=== PATIENT | female | born 1990 | race Caucasian/White ===

== ENCOUNTER 2021-10-31 10:00 | Inpatient (IN) | payer OTHER ==
[~2021-10-31] VITALS: Ht 167.6 cm; Wt 104.3 kg
[2021-10-31 10:39] LABS: BILIRUBIN NEGATIVE (NEGATIVE); BLOOD 1+ Ery/uL (NEGATIVE); CLARITY CLEAR (CLEAR); COLOR YELLOW (YELLOW); GLUCOSE (U) NORMAL (NORMAL); LEUKOCYTES NEGATIVE Leu/uL (NEGATIVE); NITRITE NEGATIVE (NEGATIVE); PROTEIN 2+ mg/dL (NEGATIVE); SPECIFIC GRAVITY >=1.030 (1.001-1.030)
[2021-10-31 10:42] LABS: BACTERIA 1+; URINARY WBC RARE
[2021-10-31] MEDS ORDERED: SYNTHROID50 MCG PO (10:50)
[2021-10-31] MEDS ORDERED: PRENATAL VITAM1 EA10 PO (10:51)
[2021-10-31] MEDS ORDERED: VITAMIN D3125 MC1 PO (10:52)
[2021-10-31 11:24] LABS: HCT 35.4 % (37.0-47.0); HGB 12.2 g/dl (12.5-16.0); MCH 29.3 pg (25.0-31.0); MCHC 34.5 g/dL (32.0-36.0); MCV 84.9 fL (78.0-100.0); MPV 10.2 fL (6.0-9.5); RBC 4.17 M/uL (4.20-5.40); RDW 13.7 % (11.5-14.0); WBC 14.5 K/uL (4.0-10.5)
[2021-10-31 11:35] LABS: ALBUMIN 1.9 g/dL (3.4-5.0); BILIRUBIN - TOTAL 0.1 mg/dL (0.2-1.0); BUN/CREAT RATIO (CALC) 16.7 RATIO; CREATININE 0.42 mg/dL (0.51-0.95); GLOBULIN (CALCULATION) 4.3 g/dL; POTASSIUM 3.6 mmol/L (3.5-5.1); TOTAL PROTEIN 6.2 g/dL (6.4-8.2)
[2021-11-02 07:32] LABS: HCT 32.5 % (37.0-47.0); MCH 29.2 pg (25.0-31.0); MCHC 33.8 g/dL (32.0-36.0); MCV 86.2 fL (78.0-100.0); RBC 3.77 M/uL (4.20-5.40); RDW 13.5 % (11.5-14.0); WBC 15.7 K/uL (4.0-10.5)
[2021-11-03] MEDS ORDERED: COLACE100 MG PO (06:36)
[2021-11-03] MEDS ORDERED: MOTRIN600 MG PO (06:36)
[2021-11-03] MEDS ORDERED: ZOLOFT100 MG PO (06:36)
[2021-11-03] MEDS ORDERED: PRENATAL FORMU1 EACH PO (06:36)
== END 2021-11-03 12:07 | disposition home or self-care (01) | DRG 807 ==
LOC: FOB 10:00
PROVIDERS: ADMIT Specialist
PROC: 10E0XZZ Delivery of Products of Conception, External Approach (ICD-10-PCS; principal; 2021-10-31)
PROC: 10H07YZ Insertion of Other Device into Products of Conception, Via Natural or Artificial Opening (ICD-10-PCS; 2021-10-31)
DX: O76 Abnormality in fetal heart rate and rhythm complicating labor and delivery (principal); Z37.0 Single live birth; Z3A.39 39 weeks gestation of pregnancy; O99.284 Endocrine, nutritional and metabolic diseases complicating childbirth; Z20.822 Contact with and (suspected) exposure to COVID-19; E03.9 Hypothyroidism, unspecified
CPT/HCPCS: 36415; 80053; 81001; 86850; 86900; 86901; 90686; J7030; J7120; U0002

== ENCOUNTER 2021-11-06 15:01 | Emergency (ER) | payer OTHER ==
[~2021-11-06 15:01] MED LIST: COLACE100 MG PO; MOTRIN600 MG PO; PRENATAL FORMU1 EACH PO; PRENATAL VITAM1 EA10 PO; SYNTHROID50 MCG PO; VITAMIN D3125 MC1 PO; ZOLOFT100 MG PO
[2021-11-06 16:46] LABS: BASOPHIL 0.4 % (0-2); EOSINOPHIL 3.4 % (0-5); HCT 36.7 % (37.0-47.0); HGB 12.3 g/dl (12.5-16.0); LYMPHOCYTE 32.4 % (15-48); MCH 29.3 pg (25.0-31.0); MCHC 33.5 g/dL (32.0-36.0); MCV 87.4 fL (78.0-100.0); MONOCYTE 5.8 % (0-12); MPV 9.7 fL (6.0-9.5); NEUTROPHIL 57.5 % (41-80); NRBC 0; PLT 446 K/uL (150-400); RDW 13.5 % (11.5-14.0); WBC 14.5 K/uL (4.0-10.5)
[2021-11-06 16:57] LABS: ALBUMIN 2.2 g/dL (3.4-5.0); BILIRUBIN - TOTAL 0.1 mg/dL (0.2-1.0); BUN/CREAT RATIO (CALC) 8.5 RATIO; CREATININE 0.59 mg/dL (0.51-0.95); GLOBULIN (CALCULATION) 4.4 g/dL; POTASSIUM 3.6 mmol/L (3.5-5.1); TOTAL PROTEIN 6.6 g/dL (6.4-8.2)
[2021-11-06 17:16] LABS: BILIRUBIN NEGATIVE (NEGATIVE); BLOOD 2+ Ery/uL (NEGATIVE); CLARITY CLEAR (CLEAR); COLOR YELLOW (YELLOW); GLUCOSE (U) NORMAL (NORMAL); LEUKOCYTES NEGATIVE Leu/uL (NEGATIVE); NITRITE NEGATIVE (NEGATIVE); PROTEIN NEGATIVE (NEGATIVE); SPECIFIC GRAVITY 1.015 (1.001-1.030); UROBILINOGEN 0.2 mg/dL (0.2-1.0)
[2021-11-06 17:22] LABS: URINARY WBC RARE
[2021-11-06 17:23] LABS: BACTERIA TRACE
== END 2021-11-06 17:41 | disposition home or self-care (01) ==
LOC: FER 15:01
PROVIDERS: Nurse Practitioner Family
DX: O16.5 Unspecified maternal hypertension, complicating the puerperium (principal)
CPT/HCPCS: 36415; 80053; 81001; 85025; 99283